=== PATIENT | male | born 1970 | race Caucasian/White ===

== ENCOUNTER 2017-09-26 11:04 | Emergency (ER) ==
[2017-09-26 11:07] VITALS: BP 131/88; TEMP 100.5; BMI 27.8
--- NOTE | 2017-09-26 12:09 | CT ---
EXAM: CT BRAIN HISTORY: Head pain TECHNIQUE: CT brain without intravenous contrast. 5-mm axial sections with Reformations. COMPARISON: None FINDINGS: There is mild generalized atrophy. There is mild periventricular and deep white matter low attenuatio n which although nonspecific is suggestive of chronic microvascular ischemic change. CSF attenuation within the anterior left middle cranial fossa probably representing an arachnoid cyst. Old infarcti on could appear similar. Brain otherwise is unremarkable without evidence of hemorrhage or large vessel distribution recent is chemic infarction. There is no suggestion of acute hydrocephalus or subdural fluid collection. No m ass or mass effect. Cranium is within normal limits. Mastoid processes are aerated. The visualized paranasal sinuses a re clear. IMPRESSION: No acute intracranial process.
--- NOTE | 2017-09-26 12:15 | CT ---
Exam: CT of the chest without intravenous contrast. Comparison: Chest x-ray performed 05/01/2009 Reason for exam: Cough. FINDINGS: 6 mm spiculated nodule in the right upper lobe. No pneumothorax, pleural effusion, or foc al consolidation. Evaluation of mediastinal lymph nodes is limited by the lack of intravenous contra st. Image interpretation is limited by the lack of intravenous contrast administration. The aorta is normal in course and caliber. The heart is not enlarged. 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 No suspicious appearing osteoblastic or osteolytic lesions. Impression: 1. 6 mm spiculated nodule in the right upper lobe. Recommend 3-month follow-up to document stability . Image interpretation is limited by the lack of intravenous contrast administration. 2. Otherwise, no acute imaging findings are seen within the thorax.
[2017-09-26] MEDS ORDERED: SODIUM CHLORIDE 1,000 ML IV STA (14:19)
--- NOTE | 2017-09-26 15:03 | CT ---
EXAM: CT abdomen pelvis without contrast TECHNIQUE: Helical axial CT of the abdomen and pelvis was performed without contrast with coronal an d sagittal reconstructions. COMPARISON: CT abdomen pelvis from 06/24/2015 HISTORY: Abdominal pain FINDINGS: There is no acute abnormality. Specifically there is no mesenteric inflammation, free air, free fluid or bowel wall thickening or edema or pathologic lymph nodes or obstruction or ileus. There is a larg e amount of retained stool. The liver, spleen, pancreas,and adrenal glands show no acute abnormality. There is fatty infiltration of the liver. Lung bases are well-aerated. There is no hiatal hernia. The gallbladder is normal wit h no stones or inflammation. There is no biliary or pancreatic ductal dilatation. There are no suspicious renal masses or large cysts and no hydronephrosis. There are no kidney stones . Both ureters demonstrate normal course and caliber. There is no filling defect in the urinary blad kathy. The appendix is not identified. There are no inflamed colonic diverticula. There is a fat-containing umbilical hernia. There is calcific atherosclerosis of the aorta. There are no acute osseous abnorma lities. IMPRESSION: 1. No acute abnormality in the abdomen or pelvis. 2. Large amount of retained stool. 3. Other miscellaneous nonacute findings as above.
[2017-09-26] MEDS ORDERED: ROCEPHIN 1 GM in SODIUM CHLORIDE 50 ML IV STA (16:00)
[2017-09-26] MEDS ORDERED: TYLENOL PO STA (16:00)
[2017-09-26] MEDS ORDERED: ROCEPHIN ONE (16:02)
--- NOTE | 2017-09-26 16:03 | ED.PDOC ---
General ED Provider: Dr. TANGELA CAI Chief Complaint: Fever Stated Complaint: fever Time Seen by Physician: 11:00 Mode of Arrival: Walk-In Information Source: Patient Exam Limitations: No limitations Primary Care Provider: DAVID BALBUENA Nursing and Triage Documentation Reviewed and Agree: Yes Does patient meet sepsis criteria?: No If yes, has appropriate treatment been initiated?: No System Inflammatory Response Syndrome: Not Applicable Sepsis Protocol: For patient's 13 years and over: Temp is 96.8 and below OR 101 and greater Pulse >90 BPM Resp >20/minute Acutely Altered Mental Status Are patient's symptoms suggestive of a new infection, such as: -Pneumonia -Skin, Soft Tissue -Endocarditis -UTI -Bone, Joint Infection -Implantable Device -Acute Abdominal Infection -Wound Infection -Meningitis -Blood Stream Catheter Infection -Unknown Miscellaneous Complaint Exam - Febrile Illness/Adult Complaint/Exam Onset/Duration: 5 days Symptoms Are: Still present Timing: Intermittent Highest Temperature Recorded: 100 Initial Severity: Mild Current Severity: Mild Aggravating: Reports: None Associated Signs and Symptoms: Reports: Headache, Cough, Myalgia. Denies: Fluid intake, Short of air, Sore throat, Nausea, Vomiting, Chills, Diaphoresis, Dysuria, Arthralgia, Stiff neck, Rash, Altered mental status Pseudomonas Risk Factors: Reports: None Serious Bacterial Infection Risk Factors: Reports: None Current Antibiotic Use: No Last Time and Dose of Tylenol (acetaminophen): n/a Related Surgical History: None Specific Findings: Absent: Meningeal signs, Diaphoresis, Joint swelling, Erythema, Cellulitis, Lymphadenopathy, Petechiae, CVA tenderness Differential Diagnoses: Viremia Quality Indicators For Pneumonia/CAP: Antibiotics in 6hr-admit, SpO2 assessed, Empiric Antibiotic Rx Quality Indicator For Non-Traumatic Chest Pain/Syncope: EKG Performed Review of Systems - Review Of Systems Constitutional: Reports: Fever, Malaise, Weakness, Loss of appetite Eyes: Reports: No symptoms Ears, Nose, Mouth, Throat: Reports: No symptoms Respiratory: Reports: Cough Cardiac: Reports: No symptoms GI: Reports: Abdominal pain : Reports: No symptoms Musculoskeletal: Reports: No symptoms Skin: Reports: No symptoms Neurological: Reports: No symptoms Endocrine: Reports: No symptoms Hematologic/Lymphatic: Reports: No symptoms All Other Systems: Reviewed and Negative Past Medical History - Past Medical History Previously Healthy: Yes Endocrine: Reports: DM 2 Cardiovascular: Reports: None Respiratory: Reports: None Hematological: Reports: None Gastrointestinal: Reports: None Genitourinary: Reports: None Neuro/Psych: Reports: None Musculoskeletal: Reports: None Cancer: Reports: None - Surgical History General Surgical History: Reports: Unknown - Family History Family History: Reports: Unknown - Social History Smoking Status: Never smoker Hx Substance Use: No Alcohol Screening: None Physical Exam - Physical Exam Appearance: Well-appearing, No pain distress, Well-nourished Eyes: DELL, EOMI, Conjunctiva clear ENT: Ears normal, Nose normal, Oropharynx normal Respiratory: Airway patent, Breath sounds clear, Breath sounds equal, Respirations nonlabored Cardiovascular: RRR, Pulses normal, No rub, No murmur GI/: Soft, Nontender, No masses, Bowel sounds normal, No Organomegaly Musculoskeletal: Normal strength, ROM intact, No edema, No calf tenderness Skin: Warm, Dry, Normal color Neurological: Sensation intact, Motor intact, Reflexes intact, Cranial nerves intact, Alert, Oriented Psychiatric: Affect appropriate, Mood appropriate Interpretation - Radiology Interpretation Radiology Interpretation By: Radiologist Radiology Results: Positive (SPN DISCUSSED WITH PT AND HIS ) Critical Care Note - Critical Care Note Total Time (mins): 0 Course - Course Hematology/Chemistry: 09/26/17 12:15 09/26/17 12:15 Orders, Labs, Meds: Lab Review 09/26/17 09/26/17 09/26/17 11:28 12:00 12:15 WBC 2.75 L RBC 4.73 Hgb 14.0 Hct 38.2 L MCV 80.8 MCH 29.6 MCHC 36.6 H RDW Coeff of Han 12.7 Plt Count 139 L Immature Gran % (Auto) 0.0 Neut % (Auto) 51.3 Lymph % (Auto) 33.8 [place] % (Auto) 13.1 H Eos % (Auto) 0.7 Baso % (Auto) 1.1 Immature Gran # (Auto) 0.0 Neut # (Auto) 1.4 L Lymph # (Auto) 0.9 [place] # (Auto) 0.4 Eos # (Auto) 0.0 Baso # (Auto) 0.0 Sodium Potassium Chloride Carbon Dioxide Anion Gap BUN Creatinine Estimated GFR (MDRD) BUN/Creatinine Ratio Glucose Lactic Acid 11.1 Calcium Total Bilirubin AST ALT Alkaline Phosphatase Total Protein Albumin Globulin Albumin/Globulin Ratio Urine Color Yellow Urine Clarity Hazy Urine pH 5.5 Ur Specific [place] >=1.030 Urine Protein 2+ Urine Glucose (UA) 2+ Urine Ketones 1+ Urine Blood Trace-intact Urine Nitrite Negative Urine Bilirubin 1+ Urine Urobilinogen 2.0 Ur Leukocyte Esterase Negative Urine Microscopic RBC 0-2 Ur Squamous Epith Cells Not present Hyaline Casts 0-2 Urine Mucus 3+ Infectious [place] Assay 09/26/17 09/26/17 12:15 12:15 WBC RBC Hgb Hct MCV MCH MCHC RDW Coeff of Han Plt Count Immature Gran % (Auto) Neut % (Auto) Lymph % (Auto) [place] % (Auto) Eos % (Auto) Baso % (Auto) Immature Gran # (Auto) Neut # (Auto) Lymph # (Auto) [place] # (Auto) Eos # (Auto) Baso # (Auto) Sodium 135 L Potassium 3.8 Chloride 103 Carbon Dioxide 22 Anion Gap 13.8 BUN 14 Creatinine 0.92 Estimated GFR (MDRD) 89.00 BUN/Creatinine Ratio 15.21 Glucose 187 H Lactic Acid Calcium 9.2 Total Bilirubin 1.5 H AST 58 H ALT 81 H Alkaline Phosphatase 82 Total Protein 6.9 Albumin 3.9 Globulin 3.0 Albumin/Globulin Ratio 1.30 Urine Color Urine Clarity Urine pH Ur Specific [place] Urine Protein Urine Glucose (UA) Urine Ketones Urine Blood Urine Nitrite Urine Bilirubin Urine Urobilinogen Ur Leukocyte Esterase Urine Microscopic RBC Ur Squamous Epith Cells Hyaline Casts Urine Mucus Infectious [place] Assay Negative Orders Category Date Time Status EKG-(ED ONLY) Stat CARDIO 09/26/17 11:30 Completed ED IV/MEDIPORT/POWERPORT .ONCE EMERGENCY 09/26/17 14:20 Active BLOOD CULTURE Stat LAB 09/26/17 11:29 Received CBC W/ AUTO DIFF Stat LAB 09/26/17 12:15 Completed COMPREHENSIVE METABOLIC PANEL Stat LAB 09/26/17 12:15 Completed EHRLICHIA DNA, PCR Stat LAB 09/26/17 12:00 Received LACTIC ACID Stat LAB 09/26/17 12:00 Completed LYME, WESTERN BLOT, SERUM Stat LAB 09/26/17 12:00 Received MONONUCLOSIS SCREEN Stat LAB 09/26/17 12:15 Completed LEANNA MTN SPOTTED FEVER,IgG Routine LAB 09/26/17 12:15 Received LEANNA MTN SPOTTED FEVER,IgM Routine LAB 09/26/17 12:15 Received STREP SCREEN Stat LAB 09/26/17 11:28 Results URINALYSIS C & S IF INDICATED Stat LAB 09/26/17 11:28 Completed WEST NILE VIRUS ANTIBODIES Stat LAB 09/26/17 12:15 Received WEST NILE VIRUS PCR Stat LAB 09/26/17 12:15 Received 0.9 % Sodium Chloride [Saline Flush] MEDS 09/26/17 14:20 Active 1 syr IVF PRN PRN Acetaminophen [Tylenol] MEDS 09/26/17 16:00 Stat 650 mg PO ONCE STA Ceftriaxone Sodium [Rocephin] 1 gm MEDS 09/26/17 16:00 Ordered 0.9 % Sodium Chloride [Sodium Chloride] 50 ml IV ONCE Sodium Chloride 0.9% [Sodium Chloride] 1,000 ml MEDS 09/26/17 14:[address] ABDOMEN/PELVIS WO CONTRAST Stat RADS 09/26/17 14:[address] CHEST W/O CONTRAST Stat RADS 09/26/17 11:[address] HEAD W/O CONTRAST Stat RADS 09/26/17 11:29 Completed Medications Generic Name Dose Route Start Last Admin Trade Name Freq PRN Reason Stop Dose Admin Ceftriaxone Sodium 1 gm/ 50 mls @ 75 mls/hr 09/26/17 16:00 Sodium Chloride IV 09/26/17 16:39 ONCE STA Sodium Chloride 1 syr 09/26/17 14:20 09/26/17 14:38 Saline Flush IVF 1 syr PRN PRN Administration To flush IV Discontinued Medications Generic Name Dose Route Start Last Admin Trade Name Freq PRN Reason Stop Dose Admin Acetaminophen 650 mg 09/26/17 16:00 Tylenol PO 09/26/17 16:01 ONCE STA Sodium Chloride 1,000 mls @ 1,000 mls/hr 09/26/17 14:19 09/26/17 14:38 Sodium Chloride IV 09/26/17 15:18 1,000 mls/hr BOLUS STA Administration Vital Signs: Temp Pulse Resp BP Pulse Ox 09/26/17 11:05 100.5 F H 107 H 20 131/88 96 Departure - Departure Time of Disposition: 17:00 Disposition: HOME SELF-CARE Discharge Problem: Fever Neutropenia Qualifiers: Neutropenia type: unspecified Qualified Code(s): D70.9 - Neutropenia, unspecified Instructions: Neutropenia (ED), Pulmonary Nodules (ED) Condition: Good Pt referred to PMD for follow-up: Yes IPMP verified?: No Additional Instructions: Please call your Family Physician as soon as possible to schedule a follow-up appointment.your liver test are abnormal please see your MD BISHOP Allergies/Adverse Reactions: Allergies No Known Allergies Allergy (Verified 09/26/17 11:07) Home Medications: Ambulatory Orders Esomeprazole Magnesium [Nexium] 40 mg PO DAILY 09/26/17 Fluoxetine HCl [Prozac] 40 mg PO DAILY 09/26/17 Lamotrigine [Lamictal] 200 mg PO DAILY 09/26/17 Metformin HCl 1,000 mg PO BEDTIME 09/26/17 Trazodone HCl 100 mg PO BEDTIME 09/26/17 Disposition Discussed With: Patient, Family
== END 2017-09-26 17:52 | disposition home or self-care (01) ==
LOC: ED 11:04
DX: R50.9 Fever, unspecified (principal); D70.9 Neutropenia, unspecified; R91.1 Solitary pulmonary nodule; R94.5 Abnormal results of liver function studies; E11.9 Type 2 diabetes mellitus without complications; R10.9 Unspecified abdominal pain; R53.1 Weakness; R05 Cough; R51 Headache; Z79.899 Other long term (current) drug therapy
CPT/HCPCS: 36415; 80053; 80074; 81001; 83605; 85025; 86308; 86617; 86757; 86788; 86789; 87040; 87798; 93005; 93010; 96361; 96365; 99283

== ENCOUNTER 2017-12-29 08:49 | Outpatient (CLI) ==
--- NOTE | 2017-12-29 10:17 | CT ---
EXAM: CT of the chest with contrast History: Follow-up right-sided lung nodule. Comparison: Chest CT 09/26/2017 Technique: Multiplanar CT images through the thorax were obtained following administration of IV con trast Findings: Heart size is normal. No pericardial effusion. Great vessels are unremarkable. No patho logically enlarged thoracic lymph nodes. No consolidation. No pleural fluid and no pneumothorax. T he previously described 6 mm right upper lobe lung nodule has resolved. There are no developing lung nodules. No pleural fluid and no pneumothorax. Within the visualized upper abdomen, the liver is fatty. No acute osseous abnormalities. Impression: 1. No acute intrathoracic process. 2. Resolved right upper lobe lung nodule. No developing lung nodules. No additional follow-up is n eeded. 3. Hepatic steatosis
== END 2017-12-29 08:50 | disposition home or self-care (01) ==
LOC: RAD 08:49
PROVIDERS: ATTEND Family Medicine
DX: R91.8 Other nonspecific abnormal finding of lung field (principal)
CPT/HCPCS: 36415; 82565